=== PATIENT | female | born 1985 | race Caucasian/White ===

== ENCOUNTER 2017-05-02 21:24 | Emergency (ER) | payer OTHER ==
--- NOTE | 2017-05-02 22:45 | ED ---
Lower Extremity Injury HPI - General Chief Complaint: Extremity Injury, Lower Stated Complaint: R foot injury Time Seen by Provider: 05/02/17 22:37 Source: patient, RN notes reviewed, old records reviewed Mode of arrival: wheelchair Limitations: no limitations - History of Present Illness Initial Comments: This is a 31-year-old female presents emergency department she complained of right foot pain. Patient denies any specific injury to cause this. Patient reports that she is currently 6 weeks . She reports that she follows up with Dr. Robin. She denies any other associated symptoms aside the foot pain which occasionally will radiate up her vance whenever she steps on it. 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 She knows that she does not have that support in her feet. Patient states that she' s had no nausea or vomiting, abdominal pain or vaginal discharge or concerns for miscarriage. Patient denies any recent fever, chills, shortness of breath, chest pain, back pain, abdominal pain, nausea vomiting, numbness or tingling, dysuria or hematuria, constipation or diarrhea, headaches or visual changes, or any other current symptoms - Related Data Previous Rx's Medication Instructions Recorded Nitrofurantoin Monohyd/M-Cryst 100 mg PO Q12HR #14 cap 05/02/17 [Macrobid] Allergies Allergy/AdvReac Type Severity Reaction Status Date / Time No Known Allergies Allergy Verified 05/02/17 22:18 Review of Systems ROS Statement: Those systems with pertinent positive or pertinent negative responses have been documented in the HPI. ROS Other: All systems not noted in ROS Statement are negative. Past Medical History Past Medical History: No Reported History Additional Past Medical History / Comment(s): Obstetric history: She has had 3 vaginal deliveries. This is her fourth and she had care with DR Robin since 8 weeks gestation. Bneg, abs neg, Rub Imm, RPR NR, HIV NR, Hep B neg. normal anatomy US. GBS neg. History of Any Multi-Drug Resistant Organisms: None Reported Past Surgical History: Cholecystectomy Additional Past Surgical History / Comment(s): wart removal 1993 Past Anesthesia/Blood Transfusion Reactions: No Reported Reaction Past Psychological History: No Psychological Hx Reported Smoking Status: Current every day smoker Past Alcohol Use History: None Reported Past Drug Use History: None Reported General Exam - General Exam Comments Initial Comments: This is a 31-year-old female. No acute distress. Limitations: no limitations General appearance: alert, in no apparent distress Head exam: Present: atraumatic, normocephalic, normal inspection Eye exam: Present: normal appearance, PERRL, EOMI. Absent: scleral icterus, conjunctival injection, periorbital swelling ENT exam: Present: normal exam, mucous membranes moist Neck exam: Present: normal inspection. Absent: tenderness, meningismus, lymphadenopathy Respiratory exam: Present: normal lung sounds bilaterally. Absent: respiratory distress, wheezes, rales, rhonchi, stridor Cardiovascular Exam: Present: regular rate, normal rhythm, normal heart sounds. Absent: systolic murmur, diastolic murmur, rubs, gallop, clicks GI/Abdominal exam: Present: soft, normal bowel sounds. Absent: distended, tenderness, guarding, rebound, rigid Extremities exam: Present: normal inspection, full ROM, normal capillary refill , other (Patient is tender to palpation over the right foot.). Absent: tenderness, pedal edema, joint swelling, calf tenderness Back exam: Present: normal inspection Neurological exam: Present: alert, oriented X3, CN II-XII intact Psychiatric exam: Present: normal affect, normal mood Skin exam: Present: warm, dry, intact, normal color. Absent: rash Course Vital Signs 05/02/17 05/02/17 05/02/17 22:06 22:47 23:04 Temperature 100.2 F H 98.7 F Pulse Rate 122 H 65 69 Respiratory 20 16 16 Rate Blood Pressure 135/72 112/70 127/71 O2 Sat by Pulse 100 98 98 Oximetry 05/02/17 23:36 Temperature 97.9 F Pulse Rate 64 Respiratory 16 Rate Blood Pressure 118/71 O2 Sat by Pulse 100 Oximetry Medical Decision Making - Medical Decision Making This is a 31-year-old female presents emergency department she complained of right foot pain. Patient denies any specific injury to cause this. Patient reports that she is currently 6 weeks . She reports that she follows up with Dr. Robin. She denies any other associated symptoms aside the foot pain which occasionally will radiate up her vance whenever she steps on it. 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 She knows that she does not have that support in her feet. Patient states that she' s had no nausea or vomiting, abdominal pain or vaginal discharge or concerns for miscarriage. X-rays negative. Patient did have a urinalysis that showed mild signs of infection. X-rays I will treat this. Patient will be advised to follow-up with primary care provider. Discussed return to emergency department if any alarming signs or symptoms occur. Patient will be given a wrap around her foot and advised to get supportive shoes. Patient's history plan will comply. - Lab Data Lab Results 05/02/17 Range/Units 22:45 Urine Color Light Yellow Urine Appearance Cloudy H (Clear) Urine pH 6.5 (5.0-8.0) Ur Specific [place] 1.002 (1.001-1.035) Urine Protein Negative (Negative) Urine Glucose (UA) Negative (Negative) Urine Ketones Negative (Negative) Urine Blood Negative (Negative) Urine Nitrite Negative (Negative) Urine Bilirubin Negative (Negative) Urine Urobilinogen <2.0 (<2.0) mg/dL Ur Leukocyte Esterase Large H (Negative) Urine RBC 12 H (0-5) /hpf Urine WBC 4 (0-5) /hpf Ur Squamous Epith Cells 10 H (0-4) /hpf Amorphous Sediment Rare H (None) /hpf Urine Bacteria Moderate H (None) /hpf - Radiology Data Radiology results: report reviewed X-ray revealed no evidence of any acute process. Disposition Clinical Impression: Foot sprain, UTI in Disposition: HOME SELF-CARE Condition: Good Instructions: Foot Sprain (ED) Additional Instructions: Follow up with primary care provider to recheck urine for any signs of infection. Return to the emergency department if any alarming signs or symptoms occur. Follow-up with orthopedic physician for pain continues to persist. Wear supportive shoes while at work and do not wear flip-flops. Prescriptions: Nitrofurantoin Monohyd/M-Cryst [Macrobid] 100 mg PO Q12HR #14 cap Referrals: Viral Vance DO [Primary Care Provider] - 1-2 days Guanakito Rodriguez MD [STAFF PHYSICIAN] - 1-2 days Time of Disposition: 23:24
[2017-05-02 22:48] VITALS: RESP 16
[2017-05-02 22:58] LABS: Amorphous Sediment,Urine Rare /hpf; Appearance,Urine Cloudy (Clear); Bacteria,Urine Moderate /hpf; Bilirubin,Urine Negative (Negative); Glucose,Urine (UA) Negative (Negative); Ketones,Urine Negative (Negative); Leukocyte Esterase,Urine Large (Negative); Nitrite,Urine Negative (Negative); PH, Urine 6.5 (5.0-8.0); Particle Count 23447; Protein,Urine Negative (Negative); RBC,Urine 12 /hpf (0-5); Specific Gravity,Urine 1.002 (1.001-1.035); Squamous Epithelial Cell,Urine 10 /hpf (0-4); UA Billing (MACRO vs. MICRO) MICRO; Urobilinogen,Urine <2.0 mg/dL (<2.0); WBC,Urine 4 /hpf (0-5)
--- NOTE | 2017-05-02 23:04 | XR ---
EXAM: XR Right Foot Complete, 3 or More Views CLINICAL HISTORY: Reason: Pain TECHNIQUE: Frontal, lateral and oblique views of the right foot. COMPARISON: No relevant prior studies available. FINDINGS: Bones/joints: Unremarkable. No acute fracture. No dislocation. Soft tissues: Unremarkable. No radiopaque foreign body. IMPRESSION: Unremarkable right foot x-rays.
[2017-05-02 23:37] VITALS: BP 118/71; PULSE 64; TEMP 97.9
== END 2017-05-02 23:36 | disposition home or self-care (01) ==
LOC: EC 21:24
DX: O9A.211 Injury, poisoning and certain other consequences of external causes complicating pregnancy, first trimester (principal); S93.601A Unspecified sprain of right foot, initial encounter; O23.41 Unspecified infection of urinary tract in pregnancy, first trimester; O99.331 Smoking (tobacco) complicating pregnancy, first trimester; F17.200 Nicotine dependence, unspecified, uncomplicated; X58.XXXA Exposure to other specified factors, initial encounter; Z3A.01 Less than 8 weeks gestation of pregnancy
CPT/HCPCS: 81001; 99284

== ENCOUNTER → 2017-05-21 | Outpatient (CLI) | payer OTHER ==
[2017-05-21 10:45] LABS: Anisocytosis Slight; CH 21.6; HCT 30.2 % (34.0-46.0); HDW 2.97; HGB 9.7 gm/dL (11.4-16.0); Hypochromasia Slight; MCH 21.7 pg (25.0-35.0); MCV 67.9 fL (80.0-100.0); Mean Platelet Volume 6.2; Microcytosis Marked; RBC 4.45 m/uL (3.80-5.40); RDW 16.5 % (11.5-15.5); WBC 5.1 k/uL (3.8-10.6)
[2017-05-21 11:13] LABS: Glucose 80 mg/dL (74-99); Non-African American GFR(MDRD) >60 (>60 ml/min/1.73 sqM)
[2017-05-21 11:42] LABS: Hepatitis B Surface Ag Index 0.04
--- NOTE | 2017-05-21 12:27 | US ---
EXAMINATION TYPE: US OB <= 14 wk fetus DATE OF EXAM: 05/21/2017 COMPARISON: NONE CLINICAL HISTORY: Z36 Comfirm Dates. EXAM PERFORMED: Transabdominal (TA) EXAM MEASUREMENTS: GESTATIONAL AGE / DATING Physician Established: (12 weeks/2 days) EDC: 12/01/2017 Dates by LMP: (12 weeks/2 days) EDC: 12/01/2017 Dates by First Scan: No prior Dates by Current Scan for: (13 weeks/2 days) EDC: 11/24/2017 MATERNAL ANATOMY Uterus: 14.3 x 8.3 x 9.8 cm Right Ovary: 3.8 x 1.7 x 2.1 cm Left Ovary: 2.5 x 1.1 x 2.5 cm Post CDS / Adnexa: wnl Presence of free fluid: No Presence of corpus luteal cyst: Right Ovary = 1.8 x 1.9 x 1.5 cm Presence of subchorionic bleed: No GESTATION / SURVEY CRL: 7.1 cm (13 weeks/2 days) MSD: wnl Heart Rate: 150 bpm Rhythm: Normal IUP: Viable IUP Nuchal Translucency 10-14wks (normal less than 3mm): 2mm Date of LMP: 02/24/2017 Single, viable IUP/No abnormality seen at this time IMPRESSION: VIABLE INTRAUTERINE GESTATION WITH A GESTATIONAL AGE OF 13 WEEKS 2 DAYS +/- 7 DAYS. ESTIMATED DATE OF CONFINEMENT BASED ON THIS EXAMINATION IS 11/24/2017.
[2017-05-21 15:45] LABS: Treponemal Ab Non-Reactive (Non-Reactive)
== END | disposition home or self-care (01) ==
LOC: RADUSWWP 09:52
PROVIDERS: ATTEND Obstetrics & Gynecology
DX: Z36 Encounter for antenatal screening of mother (principal); Z34.81 Encounter for supervision of other normal pregnancy, first trimester; O26.811 Pregnancy related exhaustion and fatigue, first trimester; Z3A.12 12 weeks gestation of pregnancy
CPT/HCPCS: 36415; 76801; 76813; 82565; 82947; 85027; 86762; 86780; 86850; 86900; 86901; 87340; 87390

== ENCOUNTER → 2017-08-19 | Outpatient (CLI) | payer OTHER ==
[2017-08-19 15:40] LABS: Anisocytosis Slight; CH 21.9; CHCM 32.3; HCT 27.4 % (34.0-46.0); HDW 3.54; HGB 8.6 gm/dL (11.4-16.0); Hypochromasia Slight; MCH 21.4 pg (25.0-35.0); MCHC 31.4 g/dL (31.0-37.0); MCV 68.4 fL (80.0-100.0); Mean Platelet Volume 6.9; Microcytosis Marked; Poikilocytosis Slight; RBC 4.01 m/uL (3.80-5.40); RDW 17.2 % (11.5-15.5)
== END | disposition home or self-care (01) ==
LOC: LABWHC1 14:16
PROVIDERS: ATTEND Obstetrics & Gynecology
DX: Z34.82 Encounter for supervision of other normal pregnancy, second trimester (principal)
CPT/HCPCS: 36415; 82950; 85027; 86850

== ENCOUNTER → 2017-08-26 | Outpatient (CLI) | payer OTHER ==
[2017-08-26 13:17] LABS: Glucose 3 Hour, Gest 36 mg/dL
== END | disposition home or self-care (01) ==
LOC: LABWHC1 08:34
PROVIDERS: ATTEND Obstetrics & Gynecology
DX: O99.810 Abnormal glucose complicating pregnancy (principal); Z3A.00 Weeks of gestation of pregnancy not specified
CPT/HCPCS: 36415; 82951; 82952

== ENCOUNTER → 2018-02-03 | Outpatient (CLI) | payer OTHER ==
[2018-02-03 14:14] LABS: Anisocytosis Slight; Basophils # (A) 0.1 k/uL (0-0.2); Basophils % (A) 1 %; Eosinophils # (A) 0.1 k/uL (0-0.7); Eosinophils % (A) 1 %; HCT 32.6 % (34.0-46.0); Hypochromasia Moderate; Lymphocytes # (A) 2.3 k/uL (1.0-4.8); Lymphocytes % (A) 36 %; MCH 20.9 pg (25.0-35.0); MCHC 30.7 g/dL (31.0-37.0); MCV 67.9 fL (80.0-100.0); Mean Platelet Volume 6.6; Microcytosis Marked; Monocytes # (A) 0.4 k/uL (0-1.0); Monocytes % (A) 6 %; Neutrophils # (A) 3.5 k/uL (1.3-7.7); Neutrophils % (A) 54 %; Platelet Count 390 k/uL (150-450); RBC 4.81 m/uL (3.80-5.40); RDW 17.9 % (11.5-15.5); WBC 6.5 k/uL (3.8-10.6)
== END | disposition home or self-care (01) ==
LOC: LABPAT 13:32
PROVIDERS: ATTEND Obstetrics & Gynecology
DX: Z01.812 Encounter for preprocedural laboratory examination (principal)
CPT/HCPCS: 36415; 85025

== ENCOUNTER → 2018-02-10 | Day surgery (SDC) | payer OTHER ==
[2018-02-04 16:04] VITALS: BMI 21.2
--- NOTE | 2018-02-09 12:18 | P.HPOB ---
History of Present Illness H&P Date: 02/09/18 Chief Complaint: Requesting permanent sterilization. This patient is a pleasant 32 yr female who is s/p of her fifth child who is requesting laparoscopic tubal cauterization for permanent sterilization. She and I has discussed all the options for control and this is the method she has chosen. Review of Systems Constitutional: Denies chills, Denies fever Past Medical History Past Medical History: No Reported History Additional Past Medical History / Comment(s): Obstetric history: She has had 5 vaginal deliveries. Anemia (chronic) History of Any Multi-Drug Resistant Organisms: None Reported Past Surgical History: Cholecystectomy Additional Past Surgical History / Comment(s): wart removal 1993 Past Anesthesia/Blood Transfusion Reactions: No Reported Reaction Past Psychological History: No Psychological Hx Reported Smoking Status: Current every day smoker Past Alcohol Use History: None Reported Past Drug Use History: None Reported - Past Family History Mother Family Medical History: Cancer, Diabetes Mellitus, Hypertension Medications and Allergies Home Medications Medication Instructions Recorded Confirmed Type No Known Home Medications [No 02/04/18 02/04/18 History Known Home Medications] Allergies Allergy/AdvReac Type Severity Reaction Status Date / Time No Known Allergies Allergy Verified 02/04/18 16:00 Exam - OBG Physical Exam Abdomen: bowel sounds normal, no diffuse tenderness, no bruit present, no guarding noted, no hepatomegaly, no splenomegaly, no mass Vulva: both: normal Vagina: normal moisture, no discharge Cervix: no lesion, no discharge Uterus: normal size, normal contour Adnexa: both: normal Results Colposcopy done recently showed no significant changes. Assessment and Plan Assessment: This is a pleasant 32 yr female who is presenting for elective permanent sterilization. Plan is laparoscopic bilateral fallopian tube cauterization. I have discussed this surgery in detail with the patient including the fact that it is considered permanent, a failure rate of approximately 5-09/1000, and 50% chance of tubal and/or ectopic if ever . She also understands that this surgery has inherent risks: infection, bleeding, possible injury to bowel/bladder/vessels and/or other organs requiring more surgery. She understand the surgery is elective and alternatives to it exist. All of her questions were answered and a written consent obtained. (1) Family planning Status: Acute Code(s): Z30.09 - ENCOUNTER FOR OTH GENERAL CNSL AND ADVICE ON CONTRACEPTION SNOMED Code(s): 979186068 (2) Anemia Status: Chronic Code(s): D64.9 - ANEMIA, UNSPECIFIED SNOMED Code(s): 408010804
[~2018-02-10] MED LIST: BUPIVACAINE (PF) 0.5% 30 ML VIAL SQ ONE; DEXAMETHASONE SOD PHOSPHATE 10 MG/ML 1 ML VIAL IV ONE; GLYCOPYRROLATE 0.2 MG/ML 2 ML VIAL ONE; HYDROmorphone 0.5 MG/0.5 ML SYRINGE IVP PRN; KETOROLAC 30 MG/ML 1 ML VIAL ONE; LACTATED RINGERS 1,000 ML IV SCH; LIDOCAINE 1% INJ 10MG/ML (20 ML MDV) ONE; MIDAZOLAM 2 MG/2 ML VIAL IVP ONE; MIDAZOLAM 2 MG/2 ML VIAL ONE; NEOSTIGMINE 1 MG/ML 10 ML VIAL ONE; ONDANSETRON 4 MG/2 ML VIAL IVP ONE; PROPOFOL 10 MG/ML 20 ML VIAL IV ONE; Pre Op ABX Message 1 EACH MISC MISCELLANE ONE; ROCURONIUM BROMIDE 10 MG/ML 10 ML VIAL IV ONE; SCOPOLAMINE 1.5MG/72HR PATCH TRANSDERM ONE; SUCCINYLCHOLINE CHLORIDE 100 MG/5 ML SYR IV ONE; fentaNYL (PF) 50 MCG/ML 2 ML AMP ONE
--- NOTE | 2018-02-10 08:09 | P.OP ---
Date of Procedure: 02/10/18 Preoperative Diagnosis: Multi parity desires permanent sterilization Postoperative Diagnosis: Same Procedure(s) Performed: Laparoscopic bilateral fallopian tube cauterization Anesthesia: KRISTAA Surgeon: Theodore Robin Estimated Blood Loss (ml): 5 Urine output (ml): 10 Pathology: none sent Condition: stable Disposition: PACU Indications for Procedure: Please see dictated H&P for intimate details of this patient's admission. In brief summary this is a pleasant 32-year-old 5 para 5 female who has requested laparoscopic tubal cauterization for permanent sterilization. Patient I have discussed the surgery and the fact that it is permanent, there is a failure rate of 5-10 per thousand procedures done, 50% chance of a tubal or an ectopic if ever . She also understood the inherent risks of laparoscopic surgery including risks of section, bleeding, possible injury bowel, bladder, vessels, and/or other organs. All the patient's questions are answered and a written consent is obtained. Operative Findings: This patient had a normal-appearing pelvis Description of Procedure: This patient is taken to the operating room where she is laid in the supine position. She subsequently undergoes general endotracheal anesthesia without incident. With an adequate level of anesthesia she's placed in dorsal lithotomy position. She has a vaginal perineal abdominal prep and drape. I first good on below placed a speculum into the vagina visualizing the cervix. An Allis clamp was gently attached to the anterior lip of the cervix and a large acorn cannula is inserted and the endocervix and attached to the Allis clamp. The bladder is then drained for 10 mL of clear urine the catheter is left in place. Then changed gloves go up above make a 10 mm infraumbilical incision. Through this a 10 mm bladed lists optical trochars placed under direct visualization. With peritoneal placement confirmed, a pneumoperitoneum was then created to 12 mm of carbon dioxide gas. A 5 mm incision is then made approximately 2 finger breaths above the symphysis pubis and through this a 5 mm trocar is placed under direct visualization. Using a blunt probe I visualize pelvis and upper abdomen. Uterus, tubes, ovaries all appear normal. Using bipolar cautery then grasped proximally 4 cm from the cornual insertion a left fallopian tube. A 2-3 cm segment of tube was completely cauterized as demarcated by the volt meter. Similar technique on the right side with similar results. With complete cauterization done on both sides procedures then ended. Final inspection shows ultimately normal. Lower trochars removed. The pneumoperitoneum was reduced and the upper trochars removed. Incisions are then closed using a 4-0 Vicryl interrupted fashion. Steri-Strips and sterile dressing applied. Infiltrated with quarter percent Marcaine for postoperative pain control. Good hemostasis is noted. A good on below remove the acorn cannula an Allis clamp and catheter. All counts are correct 3. There are no complications. Patient is taken to recovery room in satisfactory condition.
[2018-02-10 08:32] VITALS: TEMP 98
[2018-02-10 08:33] VITALS: RESP 16
[2018-02-10 09:18] VITALS: PULSE 60
[2018-02-10 09:19] VITALS: BP 101/59
== END | disposition home or self-care (01) ==
LOC: OR 06:03
PROVIDERS: ATTEND Obstetrics & Gynecology
DX: Z30.2 Encounter for sterilization (principal); D64.9 Anemia, unspecified; F17.210 Nicotine dependence, cigarettes, uncomplicated; Z82.49 Family history of ischemic heart disease and other diseases of the circulatory system; Z83.3 Family history of diabetes mellitus
CPT/HCPCS: 58670; 81025; J2250; J1100; J2710; J2405; J2001; J3010; J1885; J0330; J2704

== ENCOUNTER 2020-01-05 18:04 | Emergency (ER) | payer OTHER ==
[2020-01-05 18:20] VITALS: TEMP 97.8
--- NOTE | 2020-01-05 18:53 | ED ---
General Adult HPI - General Chief complaint: Recheck/Abnormal Lab/Rx Stated complaint: Poss Time Seen by Provider: 01/05/20 18:25 Source: patient, RN notes reviewed Mode of arrival: ambulatory Limitations: no limitations - History of Present Illness Initial comments: Patient is a pleasant 34-year-old female presenting to the emergency department with concerns for possible . Patient is 3 days late for her menses. Patient is having symptoms concerning that she could be including fatigue. Patient denies pelvic pain or vaginal bleeding. Patient took 3 test today which came back positive. Patient states she did have tubal ligation done around 2 years ago. - Related Data Previous Rx's Medication Instructions Recorded Acetaminophen-Codeine 300-30mg 1 - 2 tab PO Q4H PRN #30 tablet 02/10/18 [Tylenol #3] Ibuprofen [Motrin] 600 mg PO Q6HR PRN #40 tab 02/10/18 Allergies Allergy/AdvReac Type Severity Reaction Status Date / Time No Known Allergies Allergy Verified 01/05/20 18:20 Review of Systems ROS Statement: Those systems with pertinent positive or pertinent negative responses have been documented in the HPI. ROS Other: All systems not noted in ROS Statement are negative. Constitutional: Reports: fever Eyes: Reports: eye pain ENT: Denies: ear pain Respiratory: Denies: cough Cardiovascular: Denies: chest pain Endocrine: Denies: fatigue Gastrointestinal: Denies: abdominal pain, vomiting Genitourinary: Reports: abnormal menses. Denies: dysuria, discharge Musculoskeletal: Denies: back pain Skin: Denies: rash Neurological: Denies: weakness Past Medical History Past Medical History: No Reported History Additional Past Medical History / Comment(s): Obstetric history: She has had 3 vaginal deliveries. This is her fourth and she had care with DR Robin since 8 weeks gestation. Bneg, abs neg, Rub Imm, RPR NR, HIV NR, Hep B neg. normal anatomy US. GBS neg. History of Any Multi-Drug Resistant Organisms: None Reported Past Surgical History: Cholecystectomy Additional Past Surgical History / Comment(s): wart removal 1993 Past Anesthesia/Blood Transfusion Reactions: No Reported Reaction Past Psychological History: No Psychological Hx Reported Smoking Status: Current every day smoker Past Alcohol Use History: Occasional Past Drug Use History: None Reported - Past Family History Mother Family Medical History: Cancer, Diabetes Mellitus, Hypertension General Exam Limitations: no limitations General appearance: alert, in no apparent distress Head exam: Present: normocephalic Eye exam: Present: normal appearance, PERRL ENT exam: Present: normal oropharynx Neck exam: Present: normal inspection Respiratory exam: Present: normal lung sounds bilaterally Cardiovascular Exam: Present: regular rate, normal rhythm GI/Abdominal exam: Present: soft. Absent: distended, tenderness External exam: Present: normal external exam (HE Carrera is present during exami [email or web address]) Speculum exam: Present: normal speculum exam By manual exam: Present: normal by manual exam. Absent: cervical motion tenderness, adnexal tenderness, adnexal mass Extremities exam: Present: normal inspection Neurological exam: Present: alert Psychiatric exam: Present: normal affect, normal mood Skin exam: Present: normal color Course Vital Signs 01/05/20 18:16 Temperature 97.8 F Pulse Rate 72 Respiratory 16 Rate Blood Pressure 148/83 O2 Sat by Pulse 100 Oximetry Medical Decision Making - Medical Decision Making Case discussed with Dr. Robin who would like to follow-up with this patient at 8:30 tomorrow morning. Patient reevaluated and resting comfortably in bed. Patient remains symptom-free at this time. Patient was updated on results and need for close follow-up. Patient is agreeable that she'll follow-up with her appointment tomorrow and is demonstrating understanding and importance for this. Family is also present who will help with assuring follow-up. Patient is advised to return if she has pain or bleeding or any worsening symptoms. Patient is aware that she has high risk for tubal or ectopic . - Lab Data Result diagrams: 01/05/20 19:30 01/05/20 19:30 Lab Results 01/05/20 01/05/20 01/05/20 Range/Units 18:45 19:30 19:30 WBC 6.2 (3.8-10.6) k/uL RBC 5.08 (3.80-5.40) m/uL Hgb 10.3 L (11.4-16.0) gm/dL Hct 34.1 (34.0-46.0) % MCV 67.1 L (80.0-100.0) fL MCH 20.3 L (25.0-35.0) pg MCHC 30.3 L (31.0-37.0) g/dL RDW 16.5 H (11.5-15.5) % Plt Count 454 H (150-450) k/uL Neutrophils % 64 % Lymphocytes % 28 % Monocytes % 5 % Eosinophils % 0 % Basophils % 1 % Neutrophils # 3.9 (1.3-7.7) k/uL Lymphocytes # 1.8 (1.0-4.8) k/uL Monocytes # 0.3 (0-1.0) k/uL Eosinophils # 0.0 (0-0.7) k/uL Basophils # 0.1 (0-0.2) k/uL Hypochromasia Marked Anisocytosis Slight Microcytosis Marked PT (9.0-12.0) sec INR (<1.2) APTT (22.0-30.0) sec Sodium 140 (137-145) mmol/L Potassium 3.8 (3.5-5.1) mmol/L Chloride 107 (98-107) mmol/L Carbon Dioxide 21 L (22-30) mmol/L Anion Gap 12 mmol/L BUN 4 L (7-17) mg/dL Creatinine 0.60 (0.52-1.04) mg/dL Est GFR (CKD-EPI)AfAm >90 (>60 ml/min/1.73 sqM) Est GFR (CKD-EPI)NonAf >90 (>60 ml/min/1.73 sqM) Glucose 95 (74-99) mg/dL Calcium 9.8 (8.4-10.2) mg/dL Total Bilirubin 0.3 (0.2-1.3) mg/dL AST 26 (14-36) U/L ALT 19 (4-34) U/L Alkaline Phosphatase 102 (38-126) U/L Total Protein 8.3 H (6.3-8.2) g/dL Albumin 5.1 H (3.5-5.0) g/dL HCG, Quant 109.1 mIU/mL Urine Color Urine Appearance (Clear) Urine pH (5.0-8.0) Ur Specific [place] (1.001-1.035) Urine Protein (Negative) Urine Glucose (UA) (Negative) Urine Ketones (Negative) Urine Blood (Negative) Urine Nitrite (Negative) Urine Bilirubin (Negative) Urine Urobilinogen (<2.0) mg/dL Ur Leukocyte Esterase (Negative) Urine HCG, Qual Detected (Not Detectd) Blood Type Blood Type Recheck Bld Type Recheck Status 01/05/20 01/05/20 01/05/20 Range/Units 19:30 19:30 20:39 WBC (3.8-10.6) k/uL RBC (3.80-5.40) m/uL Hgb (11.4-16.0) gm/dL Hct (34.0-46.0) % MCV (80.0-100.0) fL MCH (25.0-35.0) pg MCHC (31.0-37.0) g/dL RDW (11.5-15.5) % Plt Count (150-450) k/uL Neutrophils % % Lymphocytes % % Monocytes % % Eosinophils % % Basophils % % Neutrophils # (1.3-7.7) k/uL Lymphocytes # (1.0-4.8) k/uL Monocytes # (0-1.0) k/uL Eosinophils # (0-0.7) k/uL Basophils # (0-0.2) k/uL Hypochromasia Anisocytosis Microcytosis PT 10.1 (9.0-12.0) sec INR 1.0 (<1.2) APTT 23.6 (22.0-30.0) sec Sodium (137-145) mmol/L Potassium (3.5-5.1) mmol/L Chloride (98-107) mmol/L Carbon Dioxide (22-30) mmol/L Anion Gap mmol/L BUN (7-17) mg/dL Creatinine (0.52-1.04) mg/dL Est GFR (CKD-EPI)AfAm (>60 ml/min/1.73 sqM) Est GFR (CKD-EPI)NonAf (>60 ml/min/1.73 sqM) Glucose (74-99) mg/dL Calcium (8.4-10.2) mg/dL Total Bilirubin (0.2-1.3) mg/dL AST (14-36) U/L ALT (4-34) U/L Alkaline Phosphatase (38-126) U/L Total Protein (6.3-8.2) g/dL Albumin (3.5-5.0) g/dL HCG, Quant mIU/mL Urine Color Yellow Urine Appearance Clear (Clear) Urine pH 7.5 (5.0-8.0) Ur Specific [place] 1.010 (1.001-1.035) Urine Protein Negative (Negative) Urine Glucose (UA) Negative (Negative) Urine Ketones Negative (Negative) Urine Blood Negative (Negative) Urine Nitrite Negative (Negative) Urine Bilirubin Negative (Negative) Urine Urobilinogen <2.0 (<2.0) mg/dL Ur Leukocyte Esterase Negative (Negative) Urine HCG, Qual (Not Detectd) Blood Type B Negative Blood Type Recheck B Neg Bld Type Recheck Status No - Radiology Data Radiology results: report reviewed (Ultrasound shows possible gestational sac in the uterus.) Disposition Clinical Impression: Disposition: HOME SELF-CARE Condition: Stable Instructions (If sedation given, give patient instructions): (ED) Additional Instructions: Please follow-up tomorrow at 8:[address] Robin. This appointment is very important. There is risk of possible ectopic or tubal with complications associated with that. Return to emergency department for pelvic pain, bleeding, passing out, worsening symptoms or any other concerns. Is patient prescribed a controlled substance at d/c from ED?: No Referrals: Keren Michelle MD [Primary Care Provider] - 1-2 days Theodore Robin MD [STAFF PHYSICIAN] - 1-2 days Time of Disposition: 21:15
[2020-01-05 19:47] LABS: Anisocytosis Slight; Basophils # (A) 0.1 k/uL (0-0.2); Basophils % (A) 1 %; Eosinophils % (A) 0 %; HCT 34.1 % (34.0-46.0); HGB 10.3 gm/dL (11.4-16.0); Hypochromasia Marked; Lymphocytes # (A) 1.8 k/uL (1.0-4.8); Lymphocytes % (A) 28 %; MCH 20.3 pg (25.0-35.0); MCHC 30.3 g/dL (31.0-37.0); MCV 67.1 fL (80.0-100.0); Mean Platelet Volume 6.6; Microcytosis Marked; Monocytes # (A) 0.3 k/uL (0-1.0); Monocytes % (A) 5 %; Neutrophils # (A) 3.9 k/uL (1.3-7.7); Neutrophils % (A) 64 %; Platelet Count 454 k/uL (150-450); RBC 5.08 m/uL (3.80-5.40); RDW 16.5 % (11.5-15.5); WBC 6.2 k/uL (3.8-10.6)
[2020-01-05 19:56] LABS: ALT 19 U/L (4-34); AST 26 U/L (14-36); African American GFR (CKD) >90 (>60 ml/min/1.73 sqM); Albumin 5.1 g/dL (3.5-5.0); Alkaline Phosphatase 102 U/L (38-126); Anion Gap 12 mmol/L; Blood Urea Nitrogen 4 mg/dL (7-17); Calcium 9.8 mg/dL (8.4-10.2); Carbon Dioxide 21 mmol/L (22-30); Chloride 107 mmol/L (98-107); Glucose 95 mg/dL (74-99); Non-African American GFR(CKD) >90 (>60 ml/min/1.73 sqM); Potassium 3.8 mmol/L (3.5-5.1); Sodium 140 mmol/L (137-145); Total Bilirubin 0.3 mg/dL (0.2-1.3); Total Protein 8.3 g/dL (6.3-8.2)
[2020-01-05 20:09] LABS: Partial Thromboplastin Time 23.6 sec (22.0-30.0); Prothrombin Time 10.1 sec (9.0-12.0)
[2020-01-05 20:13] LABS: HCG,Quantitative Serum 109.1 mIU/mL
[2020-01-05 20:47] LABS: Appearance,Urine Clear (Clear); Bilirubin,Urine Negative (Negative); Blood,Urine Negative (Negative); Color,Urine Yellow; Glucose,Urine (UA) Negative (Negative); Ketones,Urine Negative (Negative); Leukocyte Esterase,Urine Negative (Negative); Nitrite,Urine Negative (Negative); PH, Urine 7.5 (5.0-8.0); Protein,Urine Negative (Negative); Urobilinogen,Urine <2.0 mg/dL (<2.0)
--- NOTE | 2020-01-05 20:52 | US ---
EXAMINATION TYPE: Transabdominal DATE OF EXAM: 01/05/2020 8:37 PM COMPARISON: US, This is first US for this . CLINICAL HISTORY: pain. Pain per order. Hx tubal ligation January 2018. Hx ovarian cysts. . EXAM PERFORMED: Transvaginal (TV) and Transabdominal (TA) EXAM MEASUREMENTS: GESTATIONAL AGE / DATING Physician Established: Not yet established. Dates by LMP: (4 weeks/0 days) EDC: 09/13/2020 Dates by First Scan: This is first scan Dates by Current Scan for: Only possible gestational sac seen at this time. Measured OOR. MATERNAL ANATOMY Uterus: 9.4 x 5.6 x 4.8 cm. Anechoic area (possible GS) seen upper endometrium as mentioned below. Right Ovary: 3.3 x 2.4 x 2.0 cm. Area of mixed echogenicity seen with vascularity measurin.7 x 1 .9 x 1.5 cm. Left Ovary: 2.6 x 1.6 x 1.1 cm. Follicles seen. Post CDS / Adnexa: Prominent vessels seen in the left adnexa measuring 0.73 cm. Presence of free fluid: yes in CDS Presence of corpus luteal cyst: Area of mixed echogenicity and vascularity seen in the right ovary m easurin.7 x 1.9 x 1.5 cm. GESTATION / SURVEY Possible gestational sac: MSD: 0.91 cm. (Measures out of range. IUP: Only possible gestational sac seen at this time. Date of LMP: 12/08/2019 Beta HcG (if available): Detected IMPRESSION: Possible intrauterine gestational sac. Correlation with the test recommended. Follow-up exa m in 14 days recommended if indicated to confirm a living fetus. No adnexal mass.
[2020-01-05 21:46] VITALS: BP 140/75; PULSE 75; RESP 18
== END 2020-01-05 21:46 | disposition home or self-care (01) ==
LOC: EC 18:04
DX: O99.89 Other specified diseases and conditions complicating pregnancy, childbirth and the puerperium (principal); R53.83 Other fatigue; Z32.01 Encounter for pregnancy test, result positive; O99.331 Smoking (tobacco) complicating pregnancy, first trimester; F17.200 Nicotine dependence, unspecified, uncomplicated; Z98.51 Tubal ligation status; Z3A.01 Less than 8 weeks gestation of pregnancy
CPT/HCPCS: 36415; 76801; 76817; 80053; 81003; 81025; 84702; 85025; 85610; 85730; 86900; 86901; 99284

== ENCOUNTER → 2020-01-07 | Outpatient (CLI) | payer OTHER | END | disposition home or self-care (01) | LOC: LABWHC1 17:29 | PROVIDERS: ATTEND Obstetrics & Gynecology | DX: O00.90 Unspecified ectopic pregnancy without intrauterine pregnancy (principal) | CPT/HCPCS: 36415; 84702 ==

== ENCOUNTER → 2020-01-18 | Outpatient (CLI) | payer OTHER ==
[2020-01-18 08:18] LABS: Anisocytosis Slight; HCT 33.5 % (34.0-46.0); HGB 10.1 gm/dL (11.4-16.0); Hypochromasia Marked; MCH 20.5 pg (25.0-35.0); MCHC 30.2 g/dL (31.0-37.0); MCV 67.8 fL (80.0-100.0); Microcytosis Marked; Platelet Count 331 k/uL (150-450); RBC 4.94 m/uL (3.80-5.40); RDW 16.7 % (11.5-15.5); WBC 4.1 k/uL (3.8-10.6)
--- NOTE | 2020-01-18 11:52 | US ---
EXAMINATION TYPE: Ultrasound OB <= 14 week transvaginal DATE OF EXAM: 01/18/2020 8:18 AM COMPARISON: 01/05/2020 CLINICAL HISTORY: 34-year-old female O00.9 Ectopic , unspecified. Patient stated received Me thotrexate 01/11/20 for ectopic as already had tubal ligation/cauterization a couple of year s ago; ; vaginal bleeding since Methotrexate injection; Followup US today. EXAM PERFORMED: TA and TV FINDINGS: EXAM MEASUREMENTS: MATERNAL ANATOMY Uterus: 9.9 x 5.0 x 4.1cm; thin fluid area noted in NICK on TV US = 0.9x 0.2 x 0.1cm and may correspon d to patient's symptoms of vaginal bleeding; couple of small Nabothian Cysts seen in cervix Right Ovary: 3.1 x 3.0 x 1.5cm; with follicular change Left Ovary: 3.1 x 3.5 x 1.7cm, with follicular change Post CDS / Adnexa: wnl Presence of free fluid: no Presence of corpus luteal cyst: small hyperechoic oval structure noted in periphery of right ovary = 0.5 x 0.4 x 0.4cm Presence of subchorionic bleed: NA GESTATION / SURVEY: No IUP or ectopic seen Date of LMP: 12/08/2019 Beta HcG (if available): NA IMPRESSION: 1. Sliver of fluid within the uterine cavity along the lower uterine segment. Tiny cervical nabothian cyst. 2. No visualized intrauterine or ectopic . Correlate with appropriate down trending beta hCG s.
== END | disposition home or self-care (01) ==
LOC: RADUSWWP 07:29
PROVIDERS: ATTEND Obstetrics & Gynecology
DX: N88.8 Other specified noninflammatory disorders of cervix uteri (principal); O00.90 Unspecified ectopic pregnancy without intrauterine pregnancy; Z3A.00 Weeks of gestation of pregnancy not specified
CPT/HCPCS: 76801; 76817; 84702; 85027

== ENCOUNTER → 2020-01-25 | Outpatient (CLI) | payer OTHER | END | disposition home or self-care (01) | LOC: LABWHC1 16:44 | PROVIDERS: ATTEND Obstetrics & Gynecology | DX: O00.80 Other ectopic pregnancy without intrauterine pregnancy (principal); O00.90 Unspecified ectopic pregnancy without intrauterine pregnancy | CPT/HCPCS: 36415; 84702 ==

== ENCOUNTER → 2020-08-17 | Outpatient (CLI) | payer OTHER ==
--- NOTE | 2020-08-18 07:28 | US ---
EXAMINATION TYPE: US kidneys/renal and bladder DATE OF EXAM: 08/17/2020 COMPARISON: NONE CLINICAL HISTORY: N39.0 frequent uti. Frequent UTI's EXAM MEASUREMENTS: Right Kidney: 10.8 x 3.9 x 4.9 cm Left Kidney: 9.9 x 5.5 x 4.6 cm Right Kidney: no hydronephrosis or masses seen Left Kidney: no hydronephrosis or masses seen Bladder: wnl Bilateral Jets seen: yes There is no evidence for hydronephrosis at this point in time. No nephrolithiasis is seen. No mina s are identified. The urinary bladder is anechoic. Bilateral ureteral jets are seen. IMPRESSION: No distinct abnormality appreciated.
== END | disposition home or self-care (01) ==
LOC: RADUSWWP 16:09
PROVIDERS: ATTEND Internal Medicine
DX: N39.0 Urinary tract infection, site not specified (principal)
CPT/HCPCS: 76770

== ENCOUNTER → 2020-09-30 | Outpatient (CLI) | payer OTHER ==
[2020-09-30 09:57] LABS: Anisocytosis Slight; HGB 9.7 gm/dL (11.4-16.0); Hypochromasia Marked; MCH 21.3 pg (25.0-35.0); MCHC 31.1 g/dL (31.0-37.0); MCV 68.5 fL (80.0-100.0); Mean Platelet Volume 7.3; Microcytosis Marked; Platelet Count 374 k/uL (150-450); RBC 4.52 m/uL (3.80-5.40); RDW 17.6 % (11.5-15.5); WBC 6.3 k/uL (3.8-10.6)
== END | disposition home or self-care (01) ==
LOC: LABWHC1 09-29 13:01
PROVIDERS: ATTEND Obstetrics & Gynecology
DX: N93.8 Other specified abnormal uterine and vaginal bleeding (principal)
CPT/HCPCS: 36415; 84702; 85027

== ENCOUNTER → 2022-05-01 | Outpatient (CLI) | payer OTHER | END | disposition home or self-care (01) | LOC: LABWHC1 15:19 | PROVIDERS: ATTEND Obstetrics & Gynecology | DX: N92.6 Irregular menstruation, unspecified (principal) | CPT/HCPCS: 36415; 84702 ==

== ENCOUNTER → 2022-05-03 | Outpatient (CLI) | payer OTHER | END | disposition home or self-care (01) | LOC: LABWHC1 10:31 | PROVIDERS: ATTEND Obstetrics & Gynecology | DX: N92.6 Irregular menstruation, unspecified (principal) | CPT/HCPCS: 36415; 84702 ==

== ENCOUNTER 2022-05-05 11:25 | Observation (INO) | payer OTHER ==
--- NOTE | 2022-05-05 12:03 | ED ---
Female Urogenital HPI - General Chief complaint: Vaginal Bleeding Stated complaint: poss tubal Time Seen by Provider: 05/05/22 11:35 Source: patient, family, RN notes reviewed Mode of arrival: ambulatory Limitations: no limitations - History of Present Illness Initial comments: This is a 36-year-old female who presents to the emergency department for vaginal bleeding. Patient is 5 weeks and yesterday had light spotting that today progressed to heavier bleeding. Denies passing any clots. She does have associated right lower quadrant pain and has a history of ectopic in 2019. She saw Dr[address] Robin 2 days ago and was told her lab work revealed no abnormalities. Her hCG at that time was 1366. The plan was for her to have an ultrasound on 05/11. LMP 03/28/2022. Denies any fevers, chills, sore throat, cough, dyspnea, chest pain, palpitations, nausea, vomiting, diarrhea, back pain, or headaches. MD Complaint: vaginal bleeding, pelvic pain Onset/Timin -: days(s) Radiation: RLQ Quality: cramping Last Menstrual Period: 03/28/22 Patient : Yes Number of weeks : 5 - Related Data Allergies Allergy/AdvReac Type Severity Reaction Status Date / Time No Known Allergies Allergy Verified 05/05/22 12:11 Review of Systems ROS Statement: Those systems with pertinent positive or pertinent negative responses have been documented in the HPI. ROS Other: All systems not noted in ROS Statement are negative. Past Medical History Past Medical History: No Reported History Additional Past Medical History / Comment(s): Obstetric history: She has had 3 vaginal deliveries. This is her fourth and she had care with DR Robin since 8 weeks gestation. Bneg, abs neg, Rub Imm, RPR NR, HIV NR, Hep B neg. normal anatomy US. GBS neg. History of Any Multi-Drug Resistant Organisms: None Reported Past Surgical History: Cholecystectomy Additional Past Surgical History / Comment(s): wart removal 1993 Past Anesthesia/Blood Transfusion Reactions: No Reported Reaction Past Psychological History: No Psychological Hx Reported Smoking Status: Current every day smoker Past Alcohol Use History: Occasional Past Drug Use History: None Reported - Past Family History Mother Family Medical History: Cancer, Diabetes Mellitus, Hypertension General Exam Limitations: no limitations General appearance: alert, in no apparent distress Head exam: Present: atraumatic, normocephalic, normal inspection Neck exam: Present: normal inspection. Absent: tenderness, meningismus, lymphadenopathy Respiratory exam: Present: normal lung sounds bilaterally. Absent: respiratory distress, wheezes, rales, rhonchi, stridor Cardiovascular Exam: Present: regular rate, normal rhythm, normal heart sounds. Absent: systolic murmur, diastolic murmur, rubs, gallop, clicks External exam: Present: normal external exam. Absent: erythema, swelling Speculum exam: Present: vaginal bleeding By manual exam: Present: adnexal tenderness (right) Neurological exam: Present: alert, oriented X3, CN II-XII intact Psychiatric exam: Present: normal affect, normal mood Skin exam: Present: warm, dry, intact, normal color. Absent: rash Course Vital Signs 05/05/22 11:27 Temperature 98.2 F Pulse Rate 104 H Respiratory 16 Rate Blood Pressure 136/77 O2 Sat by Pulse 100 Oximetry Medical Decision Making - Medical Decision Making This is a 36-year-old female who presents to the emergency department for vaginal bleeding and right lower quadrant pain. Patient is 5 weeks . The hCG decreased from 1366 on 05/03 to 833 today. Pelvic ultrasound revealed no IUP and an irregular cystic collection at the right ovary that may represent an ectopic . Dr. Robin, the patient's adaptive physical education teacher, reviewed the ultrasound and noted concern with the presence of fluid. He also met with the patient in the emergency department and explained these findings to her. Patient will be admitted to 23 hour observation at [facility]. She'll be administered methotrexate while in [facility]. Patient is Rh- and RhoGAM was ordered as well. Repeat CBC ordered for the morning, patient is noted to be chronically anemic. This case was discussed in detail with the attending ED physician. Presentation, findings, and treatment plan discussed in detail as well. - Lab Data Result diagrams: 05/05/22 12:19 05/05/22 12:19 Lab Results 05/05/22 05/05/22 05/05/22 Range/Units 12:19 12:19 12:19 WBC 6.9 (3.8-10.6) k/uL RBC 4.72 (3.80-5.40) m/uL Hgb 9.3 L (11.4-16.0) gm/dL Hct 31.0 L (34.0-46.0) % MCV 65.7 L (80.0-100.0) fL MCH 19.7 L (25.0-35.0) pg MCHC 30.0 L (31.0-37.0) g/dL RDW 17.4 H (11.5-15.5) % Plt Count 485 H (150-450) k/uL MPV 6.5 Neutrophils % 76 % Lymphocytes % 16 % Monocytes % 5 % Eosinophils % 0 % Basophils % 1 % Neutrophils # 5.3 (1.3-7.7) k/uL Lymphocytes # 1.1 (1.0-4.8) k/uL Monocytes # 0.4 (0-1.0) k/uL Eosinophils # 0.0 (0-0.7) k/uL Basophils # 0.0 (0-0.2) k/uL Hypochromasia Marked Anisocytosis Slight Microcytosis Marked Sodium 135 L (137-145) mmol/L Potassium 4.2 (3.5-5.1) mmol/L Chloride 104 (98-107) mmol/L Carbon Dioxide 23 (22-30) mmol/L Anion Gap 8 mmol/L BUN 5 L (7-17) mg/dL Creatinine 0.49 L (0.52-1.04) mg/dL Est GFR (CKD-EPI)AfAm >90 (>60 ml/min/1.73 sqM) Est GFR (CKD-EPI)NonAf >90 (>60 ml/min/1.73 sqM) Glucose 99 (74-99) mg/dL Calcium 9.1 (8.4-10.2) mg/dL Total Bilirubin 0.2 (0.2-1.3) mg/dL AST 20 (14-36) U/L ALT 13 (4-34) U/L Alkaline Phosphatase 92 (38-126) U/L Total Protein 7.5 (6.3-8.2) g/dL Albumin 4.6 (3.5-5.0) g/dL HCG, Quant 833.1 mIU/mL Urine Color Yellow Urine Appearance Clear (Clear) Urine pH 6.0 (5.0-8.0) Ur Specific [place] 1.019 (1.001-1.035) Urine Protein Negative (Negative) Urine Glucose (UA) Negative (Negative) Urine Ketones Negative (Negative) Urine Blood Large H (Negative) Urine Nitrite Negative (Negative) Urine Bilirubin Negative (Negative) Urine Urobilinogen <2.0 (<2.0) mg/dL Ur Leukocyte Esterase Trace H (Negative) Urine RBC 9 H (0-5) /hpf Urine WBC 2 (0-5) /hpf Ur Squamous Epith Cells 6 H (0-4) /hpf Urine Mucus Rare H (None) /hpf Blood Type Blood Type Recheck Bld Type Recheck Status 05/05/22 Range/Units 12:19 WBC (3.8-10.6) k/uL RBC (3.80-5.40) m/uL Hgb (11.4-16.0) gm/dL Hct (34.0-46.0) % MCV (80.0-100.0) fL MCH (25.0-35.0) pg MCHC (31.0-37.0) g/dL RDW (11.5-15.5) % Plt Count (150-450) k/uL MPV Neutrophils % % Lymphocytes % % Monocytes % % Eosinophils % % Basophils % % Neutrophils # (1.3-7.7) k/uL Lymphocytes # (1.0-4.8) k/uL Monocytes # (0-1.0) k/uL Eosinophils # (0-0.7) k/uL Basophils # (0-0.2) k/uL Hypochromasia Anisocytosis Microcytosis Sodium (137-145) mmol/L Potassium (3.5-5.1) mmol/L Chloride (98-107) mmol/L Carbon Dioxide (22-30) mmol/L Anion Gap mmol/L BUN (7-17) mg/dL Creatinine (0.52-1.04) mg/dL Est GFR (CKD-EPI)AfAm (>60 ml/min/1.73 sqM) Est GFR (CKD-EPI)NonAf (>60 ml/min/1.73 sqM) Glucose (74-99) mg/dL Calcium (8.4-10.2) mg/dL Total Bilirubin (0.2-1.3) mg/dL AST (14-36) U/L ALT (4-34) U/L Alkaline Phosphatase (38-126) U/L Total Protein (6.3-8.2) g/dL Albumin (3.5-5.0) g/dL HCG, Quant mIU/mL Urine Color Urine Appearance (Clear) Urine pH (5.0-8.0) Ur Specific [place] (1.001-1.035) Urine Protein (Negative) Urine Glucose (UA) (Negative) Urine Ketones (Negative) Urine Blood (Negative) Urine Nitrite (Negative) Urine Bilirubin (Negative) Urine Urobilinogen (<2.0) mg/dL Ur Leukocyte Esterase (Negative) Urine RBC (0-5) /hpf Urine WBC (0-5) /hpf Ur Squamous Epith Cells (0-4) /hpf Urine Mucus (None) /hpf Blood Type B Negative Blood Type Recheck B Neg Bld Type Recheck Status No - Radiology Data Radiology results: report reviewed, image reviewed Disposition Clinical Impression: Ectopic Disposition: ADMITTED IP TO THIS [facility] Referrals: Keren Michelle MD [Primary Care Provider] - 1-2 days
[2022-05-05] MEDS ORDERED: ACETAMINOPHEN TAB 500 MG TAB PO STA (12:25)
[2022-05-05 13:00] LABS: Anisocytosis Slight; Basophils % (A) 1 %; Eosinophils % (A) 0 %; HGB 9.3 gm/dL (11.4-16.0); Hypochromasia Marked; Lymphocytes # (A) 1.1 k/uL (1.0-4.8); Lymphocytes % (A) 16 %; MCH 19.7 pg (25.0-35.0); MCV 65.7 fL (80.0-100.0); Mean Platelet Volume 6.5; Microcytosis Marked; Monocytes # (A) 0.4 k/uL (0-1.0); Monocytes % (A) 5 %; Neutrophils # (A) 5.3 k/uL (1.3-7.7); Neutrophils % (A) 76 %; Platelet Count 485 k/uL (150-450); RBC 4.72 m/uL (3.80-5.40); RDW 17.4 % (11.5-15.5); WBC 6.9 k/uL (3.8-10.6)
[2022-05-05 13:08] LABS: Appearance,Urine Clear (Clear); Bilirubin,Urine Negative (Negative); Blood,Urine Large (Negative); Color,Urine Yellow; Glucose,Urine (UA) Negative (Negative); Ketones,Urine Negative (Negative); Leukocyte Esterase,Urine Trace (Negative); Mucus,Urine Rare /hpf; Nitrite,Urine Negative (Negative); Protein,Urine Negative (Negative); RBC,Urine 9 /hpf (0-5); Specific Gravity,Urine 1.019 (1.001-1.035); Squamous Epithelial Cell,Urine 6 /hpf (0-4); Urobilinogen,Urine <2.0 mg/dL (<2.0); WBC,Urine 2 /hpf (0-5)
[2022-05-05 13:12] LABS: ALT 13 U/L (4-34); AST 20 U/L (14-36); African American GFR (CKD) >90 (>60 ml/min/1.73 sqM); Albumin 4.6 g/dL (3.5-5.0); Alkaline Phosphatase 92 U/L (38-126); Anion Gap 8 mmol/L; Blood Urea Nitrogen 5 mg/dL (7-17); Calcium 9.1 mg/dL (8.4-10.2); Carbon Dioxide 23 mmol/L (22-30); Chloride 104 mmol/L (98-107); Glucose 99 mg/dL (74-99); Non-African American GFR(CKD) >90 (>60 ml/min/1.73 sqM); Potassium 4.2 mmol/L (3.5-5.1); Sodium 135 mmol/L (137-145); Total Bilirubin 0.2 mg/dL (0.2-1.3); Total Protein 7.5 g/dL (6.3-8.2)
[2022-05-05 13:26] LABS: HCG,Quantitative Serum 833.1 mIU/mL
--- NOTE | 2022-05-05 15:39 | US ---
EXAMINATION TYPE: Transabdominal DATE OF EXAM: 05/05/2022 3:13 PM COMPARISON: NONE CLINICAL HISTORY: Pelvic pain and bleeding, dec hcg, hx of ectopic. Pelvic pain and bleeding. . T ubal done in 2018, with hx of ectopic since tubal. EXAM PERFORMED: Transvaginal (TV) and Transabdominal (TA) EXAM MEASUREMENTS: GESTATIONAL AGE / DATING Physician Established: Not yet established Dates by LMP: 03/28/22 (5 weeks/3 days) EDC: 01/02/23 Dates by First Scan: No previous this is first scan Dates by Current Scan for: No IUP seen at this time MATERNAL ANATOMY Uterus: 8.5 x 6.5 x 5.5 cm Right Ovary: 4.5 x 3.5 x 3.1 cm Left Ovary: 2.0 x 1.5 x 1.1 cm Post CDS / Adnexa: Moderate free fluid with internal debris Presence of free fluid: Yes Presence of corpus luteal cyst: ? on right ovary measuring 2.1 x 2.2 x 1.7 cm. Presence of subchorionic bleed: No Endometrial measurement: 1.8cm Hypoechoic mass like appearance adjacent or communicating with the right ovary. Could be a possible e ctopic pg. Date of LMP: 03/28/22 Beta HcG (if available): 833 Additional tech was in the room during exam (Magdalena Vogt). IMPRESSION: Uterus is empty. Irregular thick-walled cystic fluid collection at the right ovary could be ectopic p regnancy. No yolk sac or pole seen. This area overall measures 2.2 x 1.7 cm.
[2022-05-05] MEDS ORDERED: METHOTREXATE SODIUM (PF) 25 MG/ML 2 ML VIAL IM ONE (16:52)
[2022-05-05] MEDS ORDERED: Rhogam IMMUNE GLOBULIN 1,500 UNIT/1 ML IM ONE (17:03)
--- NOTE | 2022-05-05 17:08 | P.OBCN ---
History of Present Illness Reason for consult: early problem Chief complaint: Vaginal bleeding, , pelvic pain History of present illness: This patient is a pleasant 36-year-old per his patient well known to me who has been followed this last week for positive test status post tubal ligation. Patient's history is such that she had a tubal ligation in 2017. She subsequently became in 2019 at that time had an ectopic that was treated with methotrexate. Patient was counseled at that time that since she had become after the tubal ligation certainly this could happen again she bit increased risk of a tubal ligation. She did however indicated to me that she desired . Patient call the office with a positive test last week and she's had 2 hCG levels which were rising appropriately. Last hCG level was 1366 on May 03. Patient did begin spotting on Saturday. She had some heavier bleeding today and some right-sided discomfort and came to the emergency department. Evaluation here shows a beta hCG has dropped to 833. She is not having any significant pain (states it is resolving) and just light bleeding. Abdomen soft, she has no guarding no rebound no tenderness. Ultrasound does show some free fluid in possible ectopic but it is small about 2 cm. I discussed options with the patient and she would certainly be a good candidate for methotrexate. Therefore she is going to be given methotrexate (50mg/m2) at this time and I'm going to repeat her beta hCG on . She already has an appointment to see me on Saturday. She was given strict instructions to call if she had any severe pain or other symptomatology that were suggestive of ruptured ectopic. She is anemic but this is chronic in nature and it usually is around the 9 mg per milliliter range and that's what it is at this time. At this time I think she is stable for discharge home. Follow-up with me as scheduled or call or return to the emergency department if other concerns. Past Medical History Past Medical History: No Reported History Additional Past Medical History / Comment(s): Obstetric history: She has had 3 vaginal deliveries. This is her fourth and she had care with DR Robin since 8 weeks gestation. Bneg, abs neg, Rub Imm, RPR NR, HIV NR, Hep B neg. normal anatomy US. GBS neg. History of Any Multi-Drug Resistant Organisms: None Reported Past Surgical History: Cholecystectomy Additional Past Surgical History / Comment(s): wart removal 1993 Past Anesthesia/Blood Transfusion Reactions: No Reported Reaction Past Psychological History: No Psychological Hx Reported Smoking Status: Current every day smoker Past Alcohol Use History: Occasional Past Drug Use History: None Reported - Past Family History Mother Family Medical History: Cancer, Diabetes Mellitus, Hypertension Medications and Allergies Allergies Allergy/AdvReac Type Severity Reaction Status Date / Time No Known Allergies Allergy Verified 05/05/22 12:11 Exam Vital Signs Temp Pulse Resp BP Pulse Ox 05/05/22 11:27 98.2 F 104 H 16 136/77 100 Intake and Output 05/05/22 05/05/22 05/05/22 06:59 14:59 22:59 Other: Weight 51.71 kg Results Result Diagrams: 05/05/22 12:19 05/05/22 12:19 Abnormal Lab Results - Last 24 Hours (Table) 05/05/22 05/05/22 05/05/22 Range/Units 12:19 12:19 12:19 Hgb 9.3 L (11.4-16.0) gm/dL Hct 31.0 L (34.0-46.0) % MCV 65.7 L (80.0-100.0) fL MCH 19.7 L (25.0-35.0) pg MCHC 30.0 L (31.0-37.0) g/dL RDW 17.4 H (11.5-15.5) % Plt Count 485 H (150-450) k/uL Sodium 135 L (137-145) mmol/L BUN 5 L (7-17) mg/dL Creatinine 0.49 L (0.52-1.04) mg/dL Urine Blood Large H (Negative) Ur Leukocyte Esterase Trace H (Negative) Urine RBC 9 H (0-5) /hpf Ur Squamous Epith Cells 6 H (0-4) /hpf Urine Mucus Rare H (None) /hpf
[2022-05-05] MEDS ORDERED: NALOXONE 0.4 MG/ML 1 ML VIAL IV PRN (17:24)
[2022-05-05] MEDS ORDERED: ACETAMINOPHEN TAB 325 MG TAB PO PRN (17:36)
[2022-05-06 01:12] VITALS: RESP 18
[2022-05-06 08:13] LABS: Anisocytosis Slight; Basophils % (A) 1 %; Eosinophils % (A) 0 %; HCT 29.1 % (34.0-46.0); HGB 8.6 gm/dL (11.4-16.0); Hypochromasia Marked; Lymphocytes # (A) 1.3 k/uL (1.0-4.8); Lymphocytes % (A) 17 %; MCH 19.5 pg (25.0-35.0); MCHC 29.7 g/dL (31.0-37.0); MCV 65.7 fL (80.0-100.0); Mean Platelet Volume 6.4; Microcytosis Marked; Monocytes # (A) 0.3 k/uL (0-1.0); Monocytes % (A) 4 %; Neutrophils # (A) 5.8 k/uL (1.3-7.7); Neutrophils % (A) 76 %; Platelet Count 417 k/uL (150-450); RBC 4.42 m/uL (3.80-5.40); RDW 17.7 % (11.5-15.5); WBC 7.5 k/uL (3.8-10.6)
--- NOTE | 2022-05-06 08:18 | P.PN ---
Progress Note - Text Progress Note Date: 05/06/22 Patient slept overnight without significant pain or other complaints. Abdomen is still soft nontender. Repeat CBC shows hemoglobin to be 8.6 which is consistent with her normal hemoglobin level. I again discussed the importance of close follow-up and to return to the hospital if the change in her symptoms. She understands that I do believe this is a ectopic . She did receive her methotrexate treatment last evening and is stable at this time. She'll get a repeat hCG on and see me again in the office on Saturday. Will return to the hospital if any concerns including increased pain, etc.
--- NOTE | 2022-05-06 08:22 | P.DS ---
Providers Date of admission: 05/05/22 17:39 Expected date of discharge: 05/06/22 Attending physician: Theodore Robin [facility] care [facility] Hospital Course: Please see dictated H&P on this patient's admission. Brief summary this is a 36-year-old multiparous patient with a diagnosis of ectopic . Patient was given methotrexate and had a repeat CBC and serial exam which appears to show that she is stable and does not require surgical intervention at this time. Patient's felt be stable for discharge home and decreased activities to call she had any change in her symptomatology, increased pain, etc. she will get a repeat beta hCG on and see me on Saturday. Patient Condition at Discharge: Stable Plan - Discharge Summary Follow up Appointment(s)/Referral(s): Theodore Robin MD [STAFF PHYSICIAN] - 05/11/22 Patient Instructions/Handouts: Ectopic (DC) Activity/Diet/Wound Care/Special Instructions: No intercourse or strenuous activities as instructed. Please call if increased pain, or other signs or symptoms of ectopic . Discharge Disposition: HOME SELF-CARE
[2022-05-06 08:38] VITALS: BP 106/64; PULSE 87; TEMP 99
== END 2022-05-06 08:52 | disposition home or self-care (01) ==
LOC: EC 11:25 → 4FBP 17:39
PROVIDERS: ADMIT Obstetrics & Gynecology; ATTEND Obstetrics & Gynecology
DX: O00.90 Unspecified ectopic pregnancy without intrauterine pregnancy (principal); O99.011 Anemia complicating pregnancy, first trimester; Z82.49 Family history of ischemic heart disease and other diseases of the circulatory system; Z3A.01 Less than 8 weeks gestation of pregnancy; O99.331 Smoking (tobacco) complicating pregnancy, first trimester; F17.200 Nicotine dependence, unspecified, uncomplicated; O09.10 Supervision of pregnancy with history of ectopic pregnancy, unspecified trimester; Z90.49 Acquired absence of other specified parts of digestive tract; Z98.51 Tubal ligation status; Z83.3 Family history of diabetes mellitus; D64.9 Anemia, unspecified
CPT/HCPCS: 99285; 96372; 36415; 86900; 86901; 80053; 85025 ×2; 86850; 85461; 81001; 84702; 76801; 76817; G0378 ×2; J2790; J9260

== ENCOUNTER → 2022-05-10 | Outpatient (CLI) | payer OTHER | END | disposition home or self-care (01) | LOC: LABWHC1 09:36 | PROVIDERS: ATTEND Obstetrics & Gynecology | DX: O00.90 Unspecified ectopic pregnancy without intrauterine pregnancy (principal); Z3A.00 Weeks of gestation of pregnancy not specified | CPT/HCPCS: 36415; 84702 ==

== ENCOUNTER → 2022-05-17 | Outpatient (CLI) | payer OTHER | END | disposition home or self-care (01) | LOC: LABWHC1 10:02 | PROVIDERS: ATTEND Obstetrics & Gynecology | DX: O00.90 Unspecified ectopic pregnancy without intrauterine pregnancy (principal); Z3A.00 Weeks of gestation of pregnancy not specified | CPT/HCPCS: 36415; 84702 ==